=== PATIENT | female | born 1970 | race Caucasian/White ===

== ENCOUNTER → 2018-12-23 05:55 | Outpatient (CLI) | payer BC, SELFPAY ==
[2018-12-23 07:18] LABS: Color, Urine Yellow (Yellow); Glucose, Dipstick Normal (Normal); Ketone-Dipstick Negative (Negative); Leukocyte Esterase-Dipstick Negative /ul (Negative); Nitrite-Dipstick Negative (Negative); Occult Blood-Urine 25 /ul (Negative); Protein-Dipstick Negative (Negative); Urine Bilirubin Dipstick Negative (Negative); Urine Clarity Clear (Clear); Urine Urobilinogen Normal (Normal)
[2018-12-23 07:34] LABS: Absolute Lymphocyte Count 1.22 X10^3/ul (0.83-4.51); Absolute Neutrophil Count 4.2 X10^3/uL (2.0-7.7); Basophil# 0.09 X10^3/uL; Basophil% 1.5 % (0-1); Eosinophil# 0.25 X10^3/uL; Eosinophils% 4.1 % (0-5); Hematocrit 42.2 % (37-47); Hemoglobin 14.3 g/dl (12.0-15.0); Lymphocyte # 1.22 X10^3/ul (4.0); Lymphocyte % 19.8 % (19-41); Mean Corp Hgb Conc 33.9 g/gl (32-36); Mean Corpuscular Hgb 31.2 pg (27.0-32.0); Mean Corpuscular Volume 91.9 fL (81-99); Mean Platelet Vol. 9.5 fl (6.2-12.0); Monocyte# 0.42 X10^3/uL; Monocyte% 6.8 % (0-10); Neutrophil # 4.17 X10^3/uL (2.7-7.7); Neutrophil % 67.6 % (47-70); Platelet Count 340 K/mm3 (150-450); RBC Distribution Width CV 12.7 % (11.6-14.6); RBC Distribution Width SD 42.6 fl (35.1-43.9); Red Blood Count 4.59 M/mm3 (4.2-5.4); White Blood Count 6.2 K/mm3 (4.4-11.0)
[2018-12-23 07:36] LABS: POSITIVE COUNT NO; POSITIVE DIFFERENTIAL NO; POSITIVE MORPHOLOGY NO
[2018-12-23 07:38] LABS: ALB/GLOB Ratio 1.2 RATIO (0.9-2.4); AST(SGOT) 22 U/L (15-37); Alanine Aminotransfer ALT/SGPT 37 U/L (13-56); Albumin, Serum 3.9 g/dL (3.2-5.0); Alkaline Phosphatase 73 U/L (45-117); Anion Gap 8 (5-15); BUN 13 mg/dL (7-18); BUN/Creat Ratio 15.7 RATIO (10-20); Calcium,Total 9.3 mg/dL (8.5-10.1); Chloride 107 mmol/L (98-107); Cholesterol 175 mg/dL (200); Creatinine, Serum 0.83 mg/dL (0.55-1.02); EST Glomerular Filtration Rate 78 mL/min (>60); Est Glom Filt Rate - Afr Amer 94 mL/min (>60); Globulin 3.2 g/dL (2.2-4.2); Glucose 91 mg/dL (74-106); High Density Lipoprotein 51 mg/dL; Potassium 3.9 mmol/L (3.5-5.1); Protein, Total 7.1 g/dL (6.4-8.2); Sodium Level 142 mmol/L (136-145); Triglycerides 98 mg/dL; Very Low Density Lipoprotein 20 mg/dL (5-40)
== END ==
PROVIDERS: Family Provider Family Medicine; PCP Family Medicine; Referring Provider Family Medicine; Visit Provider Family Medicine
DX: I10 Essential (primary) hypertension (principal); E78.5 Hyperlipidemia, unspecified; E78.6 Lipoprotein deficiency
CPT/HCPCS: 36415; 80053; 80061; 81002; 85025

== ENCOUNTER → 2020-01-09 15:31 | Outpatient (CLI) | payer BC, SELFPAY ==
[2020-01-09 15:35] LABS: Bacteria 0 SEEN /hpf (None Seen); Mucous, Urine 0 SEEN /hpf (<or=2+); Red Blood Cells-Urine 0 SEEN /hpf (0-5); Squamous Epithelial Cells - UA 0 SEEN /hpf (5-10)
[2020-01-09 16:58] LABS: Absolute Lymphocyte Count 1.83 X10^3/uL (0.83-4.51); Absolute Neutrophil Count 3.3 X10^3/uL (2.0-7.7); Basophil# 0.08 X10^3/uL; Basophil% 1.3 % (0-1); Eosinophil# 0.32 X10^3/uL; Eosinophils% 5.4 % (0-5); Hematocrit 42.1 % (37-47); Hemoglobin 13.6 g/dL (12.0-15.0); Lymphocyte # 1.83 X10^3/ul (4.0); Lymphocyte % 30.8 % (19-41); Mean Corp Hgb Conc 32.3 g/dL (32-36); Mean Corpuscular Hgb 31.3 pg (27.0-32.0); Mean Platelet Vol. 9.9 fl (6.2-12.0); Monocyte% 6.7 % (0-10); NRBC Flagged by Analyzer 0 % (0-5); Neutrophil # 3.31 X10^3/uL (2.7-7.7); Neutrophil % 55.6 % (47-70); Platelet Count 333 K/mm3 (150-450); RBC Distribution Width CV 12.2 % (11.6-14.6); RBC Distribution Width SD 43.5 fl (35.1-43.9); Red Blood Count 4.34 M/mm3 (4.2-5.4)
[2020-01-09 16:59] LABS: Color, Urine Yellow (Yellow); Glucose, Dipstick Normal (Normal); Ketone-Dipstick 15 mg/dl (Negative); Leukocyte Esterase-Dipstick Negative /ul (Negative); Nitrite-Dipstick Negative (Negative); Occult Blood-Urine 25 /ul (Negative); Protein-Dipstick Negative (Negative); Urine Bilirubin Dipstick Negative (Negative); Urine Clarity Clear (Clear); Urine Urobilinogen Normal (Normal); Urine pH 6.5 (5.0 - 8.0)
[2020-01-09 17:14] LABS: ALB/GLOB Ratio 1.4 RATIO (0.9-2.4); AST(SGOT) 23 U/L (15-37); Alanine Aminotransfer ALT/SGPT 34 U/L (13-56); Albumin, Serum 4.3 g/dL (3.2-5.0); Alkaline Phosphatase 74 U/L (45-117); Anion Gap 6 (5-15); BUN 16 mg/dL (7-18); BUN/Creat Ratio 18.1 RATIO (10-20); Calcium,Total 9.5 mg/dL (8.5-10.1); Chloride 107 mmol/L (98-107); Creatinine, Serum 0.89 mg/dL (0.55-1.02); EST Glomerular Filtration Rate 72 mL/min (>60); Est Glom Filt Rate - Afr Amer 87 mL/min (>60); Globulin 3.1 g/dL (2.2-4.2); Glucose 94 mg/dL (74-106); Potassium 3.9 mmol/L (3.5-5.1); Protein, Total 7.4 g/dL (6.4-8.2); Sodium Level 141 mmol/L (136-145)
[2020-01-09 17:16] LABS: White Blood Cells 0-5 SEEN /hpf (0-5)
== END ==
PROVIDERS: PCP Family Medicine; Visit Provider Family Medicine
DX: I10 Essential (primary) hypertension (principal); E78.6 Lipoprotein deficiency
CPT/HCPCS: 36415; 80053; 81001; 85025

== ENCOUNTER 2021-08-05 07:00 | Outpatient (RCR) | payer BC, SELFPAY ==
--- NOTE | 2021-06-04 18:02 | HP.PTEVAL_ITS ---
Patient's Visit Information ERIC SHAH is a 51 year old F referred to Physical Therapy by Dr. Radha Polo MD with a diagnosis of R adductor strain. Date of Evaluation: 06/04/21 Physical Therapist: KATIE Stoddard - Visit Plan Frequency: 2-3x /Week Duration: 4 Weeks Plan: 2-3X/ week for centralization of symptoms, strengthening, postural exercises, stretching of the hips, with HEP. HEP: prone press ups and sitting with L-roll with upright posture - Subjective Pt is having pain in her R inner thigh. Depending how she sits or gets up it is excruciating. It hurts when driving. When she brings her leg up into hip flexion it hurts. She is not sure how she injured it. She was at the gym but not sure how she did it. She injured it a month ago. She has no back pain. No history of back pain. She would have pain in her calf and tightness there with a knot in it and then pain all the way up to glut. The pain in her leg is better somedays more than others. She did not get an x-ray. She had naproxen and it was elevating BP and getting HAMMER so stopped and moved to Advil and Tylenol. She has no N&T and no weakness in her leg. She is sleeping at night but can not sleep on her sides due to being uncomfortable so she wakes up in the night. Steps.... the higher the steps the more pain she has and has to hold onto a railing. No bruising and no redness and swelling. - Pain R adductor pain Pain Intensity (Out of 10): 4 Pain Intensity Range: 9 Comment: with driving - Objective Gait: Walks with decreased stride on the R and slower pace. Pt could not raise her R hip into flexion in sitting. LAQ on the R (Pt could only raise about have ROM and then started to get increase R adductor pain). Could fully extend on the L. -SLUMP on the L and increase pain with SLUMP test on the R. WOrked on LAQ with PROM until full extension to floss the nerve root and was eventually able to to to full ROM on the R. LE MMT: hip flex R 3-/5 and L 4/5, Knee ext R 3-/5 and L 4+/5, R knee flex 4/5 and L 4+/5 supine hip adductioon on the R 4/5 and L 4/5, hip abd on the R 3-/5 and L 4/5. R hip adduction PROM approx 30 degrees with no pain except when going back into adduction. Palpation: pt was tender along Both adductor tendons but more so on the R. No pain with extension mobs (light along the L-spine). Prone PRess ups 3 X 10... pt was able to walk without pain and perform standing hip flexion without pain and standing hip abd. Instructed pt in sitting posture with a L roll. - Balance/Special Test Scores Lower Extremity Functional Score: 29 - Goals Goal 1:: I HEP including Neutral spine core stability program Goal Time Frame: 4-6 Weeks Goal 2:: Centralize R LE symptoms Goal Time Frame: 4-6 Weeks Goal 3:: Be able to go through entire work day without having pain and sitting with good upright posture with a L -Roll Goal Time Frame: 4-6 Weeks Goal 4:: Be able to drive without R leg pain Goal Time Frame: 4-6 Weeks - Rehabilitation Potential Rehabilitation Potential: Good - Anticipated Interventions Patient/Client Instruction: Educate patient on: Condition, Plan of Care For the Purpose of:: To decrease pain, To increase ROM, To improve nutrient delivery to tissue, To improve muscle performance and motor function, To improve ability to perform ADL's, To increase tolerance to activity/condition/position, To improve performance and independence with ADL's, To decrease level of supervision to perform tasks, To improve ability of physical actions for home/community/work/leisure, To improve gait and locomotor functions, To improve health of tissue, To decrease soft tissue restriction, To increase flexibility/ROM Therapeutic Exercise to Include: Strength training, Balance training, Postural training, Flexibilty training, Gait and locomotor training, Neuromotor development, Passive ROM, Active ROM, Dynamic Lumbar Stabilization, Selena Exercises For the Purpose of:: To decrease pain, To increase ROM, To improve nutrient delivery to tissue, To improve muscle performance and motor function, To improve ability to perform ADL's, To increase tolerance to activity/condition/position, To decrease level of supervision to perform tasks, To improve gait and locomotor functions, To improve health of tissue, To decrease soft tissue restriction, To increase flexibility/ROM, To improve balance Manual Therapy Techniques to Include: Mobilization, Soft tissue mobilization For the Purpose of:: To decrease pain, To increase ROM, To improve nutrient delivery to tissue, To improve muscle performance and motor function, To improve health of tissue, To decrease soft tissue restriction, To increase flexibility/ROM IF ES: Yes Cryotherapy (ice pack, ice massage): Yes Thermo therapy (hot pack): Yes Ultrasound (thermal/non thermal): Yes For the Purpose of:: To decrease pain, To increase ROM, To improve nutrient delivery to tissue Thank you for the opportunity to evaluate your patient. For Medicare and Medicare HMO plans, please review the plan of care and approve it. It will need to be FAXED BACK to us at [phone] for Medicare purposes. For Medicare only, by signing this I certify the plan of care. Please let me know if there are questions or concerns regarding this plan of care. Physician Signature: ____Date:
--- NOTE | 2021-07-08 07:45 | HP.PTREVAL_ITS ---
Dr. Radha Polo MD, It has been my pleasure to treat ERIC SHAH over the last 8 visits for R adductor strain. Please see the progress note below for an update on the physical therapy plan of care! Subjective: Pt reports that she has about 1/10 today. She feels better but she is still hesitant to move her R LE and back as she is anticipating pain still. Pt still has pain when she gets out of the car but no pain while driving anymore. Pt reports that she is not taking as much IBPROF. Posture is improving. Objective/Function: Gait: still walks guarded and walks with no trunk rotation and increase antalgic gait with the R LE. Trunk AROM: Flexion 75% (guarded), Ext 75%, SB B 75%. Pt struggles with PT with legs in 90/90 or sitting position.... needs max tactile and verbal cues to achieve this. Plan Plan: Pt needs additional PT for core stability ptogression in Sitting and standing. 2-3X/ week for 2-3 additional weeks for core stability in sitting and standing, postural exercises and HEP. HEP: prone press ups and sitting with L- roll with upright posture Balance/Gait/Functional tests - Balance/Special Test Scores Lower Extremity Functional Score: 62 Goals Goal 1:: I HEP including Neutral spine core stability program Goal Time Frame: 4-6 Weeks Goal Progress: Progressing Goal 2:: Centralize R LE symptoms Goal Time Frame: 4-6 Weeks Goal Progress: Progressing Goal 3:: Be able to go through entire work day without having pain and sitting with good upright posture with a L -Roll Goal Time Frame: 4-6 Weeks Goal Progress: Progressing Goal 4:: Be able to drive without R leg pain Goal Time Frame: 4-6 Weeks Goal Progress: Progressing Anticipated Interventions Patient/Client Instruction: Educate patient on: Condition, Plan of Care For the Purpose of:: To decrease pain, To increase ROM, To improve nutrient delivery to tissue, To improve muscle performance and motor function, To improve ability to perform ADL's, To increase tolerance to activity/condition/position, To improve performance and independence with ADL's, To decrease level of supervision to perform tasks, To improve ability of physical actions for home/community/work/leisure, To improve gait and locomotor functions, To improve health of tissue, To decrease soft tissue restriction, To increase flexibility/ROM Therapeutic Exercise to Include: Strength training, Balance training, Postural training, Flexibilty training, Gait and locomotor training, Neuromotor development, Passive ROM, Active ROM, Dynamic Lumbar Stabilization, Selena Exercises For the Purpose of:: To decrease pain, To increase ROM, To improve nutrient delivery to tissue, To improve muscle performance and motor function, To improve ability to perform ADL's, To increase tolerance to activity/condition/position, To decrease level of supervision to perform tasks, To improve gait and locomotor functions, To improve health of tissue, To decrease soft tissue restriction, To increase flexibility/ROM, To improve balance Manual Therapy Techniques to Include: Mobilization, Soft tissue mobilization For the Purpose of:: To decrease pain, To increase ROM, To improve nutrient delivery to tissue, To improve muscle performance and motor function, To improve health of tissue, To decrease soft tissue restriction, To increase flexibility/ROM IF ES: Yes Cryotherapy (ice pack, ice massage): Yes Thermo therapy (hot pack): Yes Ultrasound (thermal/non thermal): Yes For the Purpose of:: To decrease pain, To increase ROM, To improve nutrient delivery to tissue Please do not hesitate to contact me at [phone] by phone or if you have questions or concerns regarding this new plan of care! Sincerely, KATIE Stoddard
--- NOTE | 2021-08-05 08:10 | HP.PTDCSUM ---
It has been my pleasure to treat ERIC SHAH referred by Dr. Radha oPlo MD, with the diagnosis of R adductor strain for a total of 11 visit(s). Discharge Date: 08/05/21 Please see the following information for a summary of their discharge status. Subjective: Pt reports no pain. The last time she had pain was 2 weeks ago. Other than going to the gym she feels back to normal. R adductor pain Pain Intensity (Out of 10): 0 % Improvement: 99 Objective/Function: Pt pain free with exercises today. Corrected OHS today with toe out on the R and decreased weight shift onto the R LE Goal 1:: I HEP including Neutral spine core stability program Goal Progress: Goal Met Goal 2:: Centralize R LE symptoms Goal Progress: Goal Met Goal 3:: Be able to go through entire work day without having pain and sitting with good upright posture with a L -Roll Goal Progress: Goal Met Goal 4:: Be able to drive without R leg pain Goal Progress: Goal Met Plan: DC PT to HEP and slow start back to gym exercises Discharge Comments: DC PT to HEP and slow start back to gym exercises If there are questions or concerns regarding this patient's physical therapy, please feel free to call me at [phone]. Thank you for the referral of this patient. Sincerely, Johanna Aragon, MPT Balance/Gait/Functional tests - Balance/Special Test Scores Lower Extremity Functional Score: 80
== END 2021-08-05 19:00 | disposition home or self-care (01) ==
LOC: PT 07:00
PROVIDERS: PCP Family Medicine; Referring Provider Family Medicine; Visit Provider Family Medicine
DX: S76.211D Strain of adductor muscle, fascia and tendon of right thigh, subsequent encounter (principal)
CPT/HCPCS: 97110; 97162

== ENCOUNTER → 2022-02-18 | Outpatient (CLI) | payer BC, SELFPAY ==
[2022-02-18 07:09] LABS: Absolute Lymphocyte Count 1.28 X10^3/uL (0.83-4.51); Absolute Neutrophil Count 2.3 X10^3/uL (2.0-7.7); Basophil# 0.07 X10^3/uL; Basophil% 1.7 % (0-1); Eosinophil# 0.28 X10^3/uL; Eosinophils% 6.7 % (0-5); Hematocrit 38.8 % (37-47); Hemoglobin 12.9 g/dL (12.0-15.0); Lymphocyte # 1.28 X10^3/ul (0.83-4.51); Lymphocyte % 30.4 % (19-41); Mean Corp Hgb Conc 33.2 g/dL (32-36); Mean Corpuscular Hgb 30.2 pg (27.0-32.0); Mean Corpuscular Volume 90.9 fL (81-99); Mean Platelet Vol. 9.2 fl (6.2-12.0); Monocyte% 7.1 % (0-10); NRBC Flagged by Analyzer 0 % (0-5); Neutrophil # 2.26 X10^3/uL (2.7-7.7); Neutrophil % 53.6 % (47-70); Platelet Count 323 K/mm3 (150-450); RBC Distribution Width CV 12.2 % (11.6-14.6); RBC Distribution Width SD 40.5 fl (35.1-43.9); Red Blood Count 4.27 M/mm3 (4.2-5.4); White Blood Count 4.2 K/mm3 (4.4-11.0)
[2022-02-18 07:20] LABS: Protein, Urine (Random) 15.4 mg/dL (<11.9); Protein:Creat Ratio 122 mg/g CRE (0-200)
[2022-02-18 07:53] LABS: ALB/GLOB Ratio 1.4 RATIO (0.9-2.4); AST(SGOT) 20 U/L (15-37); Alanine Aminotransfer ALT/SGPT 25 U/L (13-56); Albumin, Serum 3.8 g/dL (3.2-5.0); Alkaline Phosphatase 72 U/L (45-117); Anion Gap 4 (5-15); BUN 15 mg/dL (7-18); Calcium,Total 9.2 mg/dL (8.5-10.1); Chloride 108 mmol/L (98-107); Cholesterol 189 mg/dL (200); Creatinine, Serum 0.68 mg/dL (0.55-1.02); EST Glomerular Filtration Rate 96 mL/min (>60); Est Glom Filt Rate - Afr Amer 116 mL/min (>60); Globulin 2.8 g/dL (2.2-4.2); Glucose 98 mg/dL (74-106); High Density Lipoprotein 54 mg/dL; Protein, Total 6.6 g/dL (6.4-8.2); Sodium Level 141 mmol/L (136-145); Triglycerides 112 mg/dL; Very Low Density Lipoprotein 22 mg/dL (5-40)
== END | disposition home or self-care (01) ==
LOC: LAB 06:39
PROVIDERS: PCP Family Medicine; Referring Provider Family Medicine; Visit Provider Family Medicine
DX: Z00.00 Encounter for general adult medical examination without abnormal findings (principal); I10 Essential (primary) hypertension; E03.2 Hypothyroidism due to medicaments and other exogenous substances
CPT/HCPCS: 36415; 80053; 80061; 82570; 84156; 85025

== ENCOUNTER → 2022-08-13 | Outpatient (CLI) | payer OTHER, SELFPAY ==
--- NOTE | 2022-08-13 07:47 | CT_ITS ---
EXAM: CT BILATERAL LOWER EXTREMITIES WITHOUT INTRAVENOUS CONTRAST CLINICAL INDICATION: PREOP TECHNIQUE: Helically acquired images were obtained of the bilateral lower extremities without intravenous contrast. 2-D reformats were performed by the technologist. This CT exam was performed using one or more of the following dose reduction techniques: automated exposure control, adjustment of the mA and/or kV according to patient size, and/or use of iterative reconstruction technique. This report was created using [employer] App report Tiny Prints technology. COMPARISON: None. FINDINGS: BONES/JOINTS: Advanced arthritic changes of the right hip noted. There is complete loss of the superior portion of the right hip joint space. Bony sclerosis and subchondral cyst formation noted along the acetabulum and femoral head. Moderate osteophytosis of the right hip. Left hip appears intact. Partial sacralization of the right side of L5. Degenerative narrowing and bony spurring at the L4-5 disc level. Tricompartment narrowing of both knee joints. No knee joint effusion. No acute fracture or subluxation. SOFT TISSUES: Soft tissues are normal in appearance. No soft tissue swelling or gas. No radiopaque foreign body. CT/Extremity Lower without Contra IMPRESSION: 1. Advanced arthritic changes of the right hip as described. 2. Diffuse degenerative narrowing of both knee joints. Electronically Signed: Chris Araujo MD at 9:58 EST ,
== END | disposition home or self-care (01) ==
LOC: CT 07:34
PROVIDERS: PCP Family Medicine; Referring Provider Student in an Organized Health Care Education/Training Program; Visit Provider Student in an Organized Health Care Education/Training Program
DX: M16.11 Unilateral primary osteoarthritis, right hip (principal); M25.551 Pain in right hip
CPT/HCPCS: 73700

== ENCOUNTER 2022-08-27 18:01 | Observation (INO) | payer OTHER, SELFPAY ==
--- NOTE | 2022-08-13 07:45 | EKG12_ITS ---
Test Reason : PREOP Blood Pressure : / mmHG Vent. Rate : 086 BPM Atrial Rate : 086 BPM P-R Int : 150 ms QRS Dur : 084 ms QT Int : 374 ms P-R-T Axes : -05 026 026 degrees QTc Int : 447 ms Normal sinus rhythm Normal ECG Confirmed by SHEILA FERRIS, BRYNA ([id number]), society editor BARBARA BLANCO ([id number]) on 08/13/2022 1:43:32 PM Referred By: Oni Zelaya Confirmed By:AURORA SOSA MD
--- NOTE | 2022-08-13 08:00 | RAD_ITS ---
EXAM: XR CHEST, 2 VIEWS CLINICAL INDICATION: PREOP TECHNIQUE: Frontal and lateral views of the chest. This report was created using [employer] report generation technology. COMPARISON: None. FINDINGS: LUNGS AND PLEURAL SPACES: Normal. No consolidation or edema. No pneumothorax. No effusion. HEART: Normal heart size. MEDIASTINUM: No mediastinal or hilar mass. BONES/JOINTS: No acute abnormality. SOFT TISSUES: Normal. RAD/Chest PA and Lateral IMPRESSION: No acute cardiopulmonary disease. Electronically Signed: Chris Araujo MD at 9:30 EST ,
[2022-08-13 08:21] LABS: Absolute Neutrophil Count 2.9 X10^3/uL (2.0-7.7); Basophil# 0.09 X10^3/uL; Basophil% 1.8 % (0-1); Eosinophil# 0.25 X10^3/uL; Hematocrit 40.4 % (37-47); Hemoglobin 13.3 g/dL (12.0-15.0); Lymphocyte % 26.2 % (19-41); Mean Corp Hgb Conc 32.9 g/dL (32-36); Mean Corpuscular Hgb 30.4 pg (27.0-32.0); Mean Corpuscular Volume 92.2 fL (81-99); Mean Platelet Vol. 9.3 fl (6.2-12.0); Monocyte# 0.44 X10^3/uL; Monocyte% 8.9 % (0-10); NRBC Flagged by Analyzer 0 % (0-5); Neutrophil # 2.87 X10^3/uL (2.7-7.7); Neutrophil % 57.9 % (47-70); Platelet Count 359 K/mm3 (150-450); RBC Distribution Width CV 12.3 % (11.6-14.6); RBC Distribution Width SD 41.8 fl (35.1-43.9); Red Blood Count 4.38 M/mm3 (4.2-5.4)
[2022-08-13 08:38] LABS: International Normalized Ratio 0.9; Prothrombin Time (Protime)PT. 11.9 SECONDS (11.7-14.9)
[2022-08-13 09:06] LABS: AST(SGOT) 27 U/L (15-37); Alanine Aminotransfer ALT/SGPT 46 U/L (13-56); Albumin, Serum 4.3 g/dL (3.2-5.0); Alkaline Phosphatase 87 U/L (45-117); Anion Gap 6 (5-15); BUN 12 mg/dL (7-18); BUN/Creat Ratio 14.1 RATIO (10-20); Bilirubin, Direct 0.09 mg/dL (0.00-0.30); Calcium,Total 9.3 mg/dL (8.5-10.1); Chloride 106 mmol/L (98-107); Creatinine, Serum 0.85 mg/dL (0.55-1.02); EST Glomerular Filtration Rate 74 mL/min (>60); Est Glom Filt Rate - Afr Amer 89 mL/min (>60); Globulin 2.9 g/dL (2.2-4.2); Glucose 101 mg/dL (74-106); Potassium 3.9 mmol/L (3.5-5.1); Protein, Total 7.2 g/dL (6.4-8.2); Sodium Level 140 mmol/L (136-145); Thyroid Stim Hormone (TSH) 0.84 uIU/mL (0.358-3.74)
[2022-08-27] VITALS (16 sets, daily range): BP systolic 82–137; BP diastolic 45–78; PULSE 69–96; RESP 13–20; TEMP 36.3–37.3; O2SAT 92–100; BMI 32.2
--- NOTE | 2022-08-27 | HIP_PTH ---
PATIENT: ERIC SHAH LOC: [facility] U#:[id number] AGE/SX: 52/F ROOM: NJ316 RE08/27/[address]: Dr. Oni Zelaya DO : 1970 BED: 1 DIS: 08/28/2022 SPEC #: [id number] RECD: 08/27/22 13:19 STATUS: JA FRANKBrook #: [id number] SYLWIA: 08/27/22 00:[address]: Oni Zelaya DEPT: SURGICAL PATHOLOGY RECD BY: Richie Anne ENTERED: 08/27/22 13:19 SP TYPE: TOTAL HIP OTHR DR: MD Dr. Radha Hare MD Tissues: Hip, NOS Procedures: Decalcification bone/plaque Surgery Specimen Level IV HEADER OPERATION: ERAS, total hip replacement PRE-OP DIAGNOSIS: Right hip osteoarthritis TISSUE SUBMITTED: Right femoral head MICROSCOPIC DIAGNOSIS Bone and tissue of right hip, total resection: Severe degenerative joint disease. AM:rhiannon 09/02/22 MICROSCOPIC DESCRIPTION Slides are reviewed. GROSS DESCRIPTION Received is one container labeled with the patient's name and designated right femoral head. The specimen consists of a baltazar femoral head measuring 5 x 5.5 x 5 cm. The articular surface displays prominent osteophyte formation, eburnation and bone erosion. Also present in the specimen container are multiple irregular fragments of bone reamings and pink-yellow soft tissue measuring in aggregate 10 x 9 x 2 cm. [place] Upholsterer sections are submitted in two cassettes as follows: 1 - soft tissue, 2 - bone after decalcification. / SJ:rg 08/27/2022 TC:5 CPT: 79193, 59853
[2022-08-27] MEDS: Lactated Ringers 1,000 ML 15 ML IV (06:00)
[2022-08-27] MEDS: Magnesium 1 GM over 15 mins IV (06:05)
[2022-08-27] MEDS: Gabapentin 600 MG Tablet PO (06:17)
[2022-08-27] MEDS: Celecoxib 200 MG Capsule 400 MG PO (06:17)
[2022-08-27] MEDS: Acetaminophen 500 MG Tablet 1000 MG PO ×3 (06:17→21:16)
[2022-08-27 06:50] LABS: Bedside Glucose 86 mg/dL (74-106)
[2022-08-27] MEDS: Cefazolin 2 GM in 0.9% Normal Saline 100 ML IV (09:15)
[2022-08-27] MEDS: TXA 1000mg in NS100 100ml (IVPB at Incision) 660 MG IV (09:20)
[2022-08-27] MEDS: TXA 1000mg in NS100 100ml (IVPB at Closure) 660 MG IV (11:19)
--- NOTE | 2022-08-27 12:13 | PCM.OPRPT ---
Report of Operation Date of Procedure: 08/27/22 Description of Surgical Findings:: Preoperative diagnosis: Right hip primary osteoarthritis Postoperative diagnosis: Right hip primary osteoarthritis Procedure: Right total hip arthroplasty Surgeon: Oni Zelaya DO Pediatric Urologist: Kelvin Perez CRNA Anesthesia: Spinal with conversion to General endotracheal It Lead: Eliot Beaver CRNA Complications: None apparent Drains: None Estimated blood loss: 300 cc Urinary output: none recorded IV fluids: 1600 cc crystalloid Specimens: Femoral head Surgical implants: [place]etta Accolade two 127 degree neck angle hip stem size #5, Biolox delta ceramic V 40 femoral head 36 mm outer diameter +0 mm neck length, Chantale Trident X3 10 degree polyethylene insert, Trident 2 TriTanium cluster hole acetabular shell 52 mm diameter Indications: This is a 52-year-old female seen in outpatient setting for right hip pain. X-rays revealed severe right hip osteoarthritic changes. She failed nonoperative management in form of activity modification, NSAIDs and Tylenol. I recommended surgical intervention in the form of right total hip arthroplasty. I reviewed the procedure with the patient, its risk, benefits, alternatives. Risks included but were not limited to bleeding, infection, loss of life or limb, risk of anesthesia, neurovascular injury, persistent pain, instability, need for additional surgery, failure of orthopedic hardware, loosening, osteolysis, need for assistive devices long-term, leg length discrepancy. Patient expressed understanding wish to proceed with surgery. Description of procedure: I greeted the patient in same-day surgery holding area the day of surgery. She was identified by name, medical record number, and date of . All questions were answered to patient satisfaction. The operative extremity was marked with a surgical marker. Informed consent was confirmed with the patient. Patient underwent spinal anesthetic in the PACU prior to the procedure. At time of her procedure, patient brought the operative suite and positioned supine initially on a standard operating table. Gentle MAC anesthesia was administered. Patient was then positioned in a lateral decubitus position with the right side up. An axillary roll was placed under the patient's left axilla. The left fibular head was free. Patient was held in the lateral decubitus position with an Alimed hip positioner system. We then prepped and draped the right lower extremity in normal, sterile orthopedic fashion. We were prepared for robotic assisted total hip arthroplasty to be performed however, contamination of both Martell hip trays was found. I made a decision to proceed with traditional total hip arthroplasty and forego robotic assistance as the patient already had her spinal anesthetic administered. We performed a timeout with all parties in attendance in agreement with the side, site, and operation to be performed. No concerns were voiced and would like to proceed. 1 g TXA IV as well as 2 g Ancef was administered prior to the incision by anesthesia staff. 1 g TXA IV was administered at time of closure additionally. A standard posterior lateral incision was made curvilinear over the posterior lateral hip, centered on the tip of the greater trochanter. Full-thickness skin incision was made, approximately 12 cm in length. Upon making skin incision, patient reacted to pain. We halted the surgical procedure packing the wound. Patient was converted to a general anesthetic with LMA placed urgently. After gaining airway control, we continued the surgical procedure. I sharply dissected down the level of the fascia abeba. Fascia abeba was then incised in line with the incision. I bluntly dissected through the raphae of the gluteus karoline. I then internally rotated the hip. Limited gluteal bursectomy was performed to identify the short external rotators. A Cobra retractor was placed beneath the gluteus medius. Short external rotators were taken down with Bovie cautery and tagged for later repair with #2 Ethibond suture. This identified the underlying capsule. A trapezoidal shaped capsulotomy was made over the femoral neck carried posteriorly to the acetabular labrum. Capsule was tagged for later repair with #2 Ethibond suture. Labrum was released and the hip was dislocated. I then marked a standard femoral neck cut 1 fingerbreadth above the lesser trochanter. Sagittal saw was used to carefully cut the femoral neck. Femoral head was removed and examined and appeared benign. It was sent to pathology per hospital policy. I then turned my attention to the acetabulum. Cobra retractors were placed anterior and posteriorly. Self-retaining retractor was placed superiorly. Acetabular labrum was excised with a long handled knife. Acetabular pulvinar was excised with Bovie cautery. Hemostasis was excellent at this point. I then began medializing reaming with a size 46 reamer. Sequentially reamed to a final diameter of 52 mm which was templated on the [facility] software. Final size 52 outer diameter acetabular component was selected and opened. Acetabular shell was impacted to complete depth with excellent rim fit. A single acetabular screw was placed in the posterior superior quadrant of the acetabular shell with excellent cancellous purchase. I then selected a 10 degree posterior lipped liner and impacted this per cable installation technician recommendations. I then turned my attention to the femur. Box chisel was then utilized to gain access to the femoral canal. Canal finder was placed. Sequential broaches were used and press-fit manner. A final size 5 achieved excellent vertical and rotational stability. We then trialed with a 127 degree hip stem as templated. A +0 neck length was trialed. The +0 mm neck achieved stability as well as closely matching leg lengths. Trials were then removed. We copiously irrigated the wound with normal saline solution, Betadine solution, and irrisept solution. A size 5 stem was then impacted with excellent fixation. Final head was then impacted over clean, dry Rosales taper neck. Final reduction was performed. A posterior capsular repair was performed with #2 Ethibond suture and bone tunnels, as well as the short external rotator repair. IT band was closed watertight with #1 strata fix suture. Deeper fascial layers were closed with 0 Vicryl suture in interrupted fashion. Subcutaneous layers were reapproximated with 2-0 Vicryl suture and skin reapproximated with running subcuticular 3-0 strata fix and skin glue. Pelvic array incision was closed with buried 2-0 Vicryl suture and skin glue.. A silver dressing was applied. Patient tolerated procedure well without complication. She was positioned back in the supine position on his hospital bed. She was transferred to PACU in stable condition. A pillow was placed between the patient's leg to be present while she is in bed. Post Operative Plan: Plan for discharge home today. Physical therapy to be performed in same-day surgery with plan to discharge to outpatient physical therapy. Weightbearing: Weightbearing as tolerated right lower extremity, posterior hip precautions. Pillows between legs while in bed Antibiotics: Ancef 1 g IV prior to discharge DVT Prophylaxis: Aspirin 81 mg twice daily to start postoperative day #1 Loya: None Dressing: Maintain silver dressing x 5 days X-Rays: PACU x-rays were reviewed demonstrated well-positioned right total hip arthroplasty implant. Follow-up 2-week x-rays in the office. Follow-up: 2 weeks in my office as scheduled
--- NOTE | 2022-08-27 12:20 | RAD_ITS ---
STUDY: X-RAY - PELVIS AND RIGHT HIP REASON FOR EXAM: Female, 52 years old. Post op -- in PACU TECHNIQUE: 2 views of the pelvis and hip. COMPARISON: None. FINDINGS: The patient is status post right total hip replacement. There is good alignment. RAD/Hip Min 2 Views (Portable) IMPRESSION: Status post right total hip replacement. There is good alignment. Electronically Signed: Hank Unger MD at 12:55 EST ,
[2022-08-27] MEDS: Lactated Ringers 1,000 ML 125 ML IV ×2 (13:11→21:06)
[2022-08-27] MEDS: Cefazolin 1 GM/50 ML BAG IV ×2 (14:43→19:55)
[2022-08-27] MEDS: Meloxicam 7.5 MG Tablet PO (18:18)
[2022-08-27] MEDS: oxyCODONE 5 MG Tablet PO ×2 (19:52→21:06)
--- NOTE | 2022-08-27 20:08 | CPS ---
pt with nursing at this time-smi and pep left at bedside
[2022-08-27] MEDS: Senna/Docusate Sodium 1 Tablet 2 TABLET PO (21:16)
[2022-08-28 01:55] VITALS: BP 102/79; PULSE 79; RESP 14; TEMP 36.7; O2SAT 98
[2022-08-28] MEDS: Lactated Ringers 1,000 ML 125 ML IV (05:22)
[2022-08-28] MEDS: Cefazolin 1 GM/50 ML BAG IV (05:23)
[2022-08-28] MEDS: oxyCODONE 5 MG Tablet PO ×2 (05:23→12:18)
[2022-08-28] MEDS: Levothyroxine 150 MCG Tablet PO (05:24)
[2022-08-28] MEDS: Acetaminophen 500 MG Tablet 1000 MG PO (05:24)
[2022-08-28 06:17] VITALS: BP 109/66; PULSE 78; RESP 16; TEMP 36.6; O2SAT 95
[2022-08-28 06:46] LABS: Hematocrit 35.6 % (37-47); Hemoglobin 11.5 g/dL (12.0-15.0); Mean Corp Hgb Conc 32.3 g/dL (32-36); Mean Corpuscular Hgb 30.3 pg (27.0-32.0); Mean Corpuscular Volume 93.9 fL (81-99); Mean Platelet Vol. 9.3 fl (6.2-12.0); Platelet Count 266 K/mm3 (150-450); RBC Distribution Width CV 12.4 % (11.6-14.6); RBC Distribution Width SD 42.8 fl (35.1-43.9); Red Blood Count 3.79 M/mm3 (4.2-5.4); White Blood Count 6.7 K/mm3 (4.4-11.0)
[2022-08-28 07:15] LABS: Anion Gap 8 (5-15); BUN 11 mg/dL (7-18); BUN/Creat Ratio 14.8 RATIO (10-20); Calcium,Total 8.4 mg/dL (8.5-10.1); Chloride 105 mmol/L (98-107); Creatinine, Serum 0.74 mg/dL (0.55-1.02); EST Glomerular Filtration Rate 87 mL/min (>60); Est Glom Filt Rate - Afr Amer 105 mL/min (>60); Glucose 133 mg/dL (74-106); Potassium 3.8 mmol/L (3.5-5.1); Sodium Level 139 mmol/L (136-145)
--- NOTE | 2022-08-28 07:29 | PCM.PN.ORT ---
Subjective Subjective Patient seen and examined. Denies new complaints. Pain controlled with current pain regiment. To bedside commode with nursing utilizing walker. Feels she is able to go home today. Objective Data Objective Data Vital Signs: Vital Signs Temp Pulse Resp BP Pulse Ox O2 Del Method O2 Flow Rate 97.9 F 78 16 109/66 95 Room Air 4 08/28/22 06:17 08/28/22 06:17 08/28/22 06:17 08/28/22 06:17 08/28/22 06:17 08/28/22 06:17 08/27/22 13:29 Oxygen Flow Rate (L/min) 4 Oxygen Delivery Method Room Air Weight: 206 lb Body Mass Index (BMI) 32.2 Intake & Output: Intake and Output for Last 24 Hours 08/26/22 08/27/22 08/28/22 23:59 23:59 23:59 Intake Total 3532 / 3532 1702.08 / 1702.08 Output Total 750 / 750 Balance 3532 / 2782 952.08 / 952.08 Lab / Micro Data Result Diagrams: 08/28/22 06:10 08/28/22 06:10 Labs: Laboratory Results - last 24 hr 08/28/22 06:10: WBC 6.7, RBC 3.79 L, Hgb 11.5 L, Hct 35.6 L, MCV 93.9, MCH 30.3, MCHC 32.3, RDW Std Deviation 42.8, RDW Coeff of Alfredo 12.4, Plt Count 266, MPV 9.3 08/28/22 06:10: Sodium 139, Potassium 3.8, Chloride 105, Carbon Dioxide 26.0, Anion Gap 8, BUN 11, Creatinine 0.74, Estim Creat Clear Calc 85.50, Est GFR (MDRD) Af Amer 105, Est GFR (MDRD) Non-Af 87, BUN/Creatinine Ratio 14.8, Glucose 133 H, Calcium 8.4 L Micro: Microbiology 08/13/22 07:36 Swab (Method) Nasal Screen MRSA/MSSA - Final Radiography Diagnostic Testing: Radiology Impression Hip X-Ray 08/27/22 12:20 IMPRESSION: Status post right total hip replacement. There is good alignment. Electronically Signed: Hank Unger MD at 12:55 EST , Physical Exam Narrative General - A&Ox3, NAD. VSS/AF Right lower extremity -incisional dressing C/D/I. SILT Sural, Saphenous, SPN, DPN, Tibial N. distributions. DP, PT 2+. BCR. DF, PF, EHL 5/5. No calf TTP. Assessment & Plan Assessment/Plan (1) Postoperative pain: PLAN: POD#1 s/p right total hip arthroplasty -Patient doing better this morning. Patient had significant lethargy and difficulty mobilizing postoperatively in same-day surgery and was subsequently placed in observation overnight. She has mobilized well with nursing staff overnight. - Pain control - PT/OT -weightbearing as tolerated, posterior precautions - DVT PPX -aspirin 81 mg twice daily, SCDs, SHERRIE casarez, early mobilization -Anticipate discharge to home today if therapy goals are met.
--- NOTE | 2022-08-28 07:30 | DCINST_ITS ---
Discharge Instructions Follow Up Care Test Results: Test results from this visit will be discussed in further detail at your follow- up appointment, if applicable. Discharge Plan Admission Primary Reason for Your Visit: Right hip replacement Attending Provider: Oni Zelaya Primary Care Provider: Radha Polo Consulting Providers: Sage Bliss Instructions Additional Instructions / Restrictions: Follow preprinted instructions from surgeon's office Discharge Orders/Prescriptions Prescriptions: Continued levothyroxine 150 mcg Tablet 150 mcg PO DAILY zolpidem [Ambien] 5 mg Tablet 5 mg PO QHS PRN (Reason: Sleep) lisinopril-hydrochlorothiazide 10-12.5 mg Tablet 1 tab PO DAILY cholecalciferol (vitamin D3) [Vitamin D3] 125 mcg (5,000 unit) Tablet 175 mcg PO DAILY meloxicam 15 mg Tablet 15 mg PO DAILY Referrals / Follow Up: Radha Polo MD [Primary Care Provider] - Oni Zelaya DO [Med Staff - Active Staff] - Disposition Disposition (needs filled in before D/C Order can be placed): Home, Self Care
[2022-08-28] MEDS: Ondansetron 4 MG/2 ML Vial IV (09:53)
[2022-08-28] MEDS: FLU VACC QS2022-23(6MOS UP)/PF 60 MCG/0.5 ML SYRINGE IM (09:53)
[2022-08-28] MEDS: Meloxicam 7.5 MG Tablet PO (09:53)
[2022-08-28] MEDS: hydroCHLOROthiazide 12.5mg 12.5 MG PO (09:54)
[2022-08-28] MEDS: Aspirin 81 MG TAB.CHEW PO (09:54)
[2022-08-28] MEDS: Senna/Docusate Sodium 1 Tablet 2 TABLET PO (09:54)
[2022-08-28] MEDS: Lisinopril 10 MG Tablet PO (09:54)
[2022-08-28 10:02] VITALS: BP 112/69; PULSE 81; RESP 18; TEMP 36.7; O2SAT 100
--- NOTE | 2022-08-28 10:55 | CASEMGMT ---
CONRAD LOCO OCCUPATIONAL THERAPIST PER DIEM CM to room to meet with patient for initial transition planning/care coordination assessment. CONRAD LOCO introduced self and role at [facility].? Pt voices understanding and consents to assessment at this time.? Pt resting in bed in no distress at this time.? @ bedside. Pt is A/O at this time and answers all questions appropriately.?? Care providers, pharmacy, and demographics verified/updated at this time. PCP: Dr Polo Specialists: Dr Zelaya-ortho, Dr Liu-flight attendant in [place], Dr Wade-SYSTEMS TESTING LABORATORY TECHNICIAN Preferred Pharmacy: [facility] Retail Insurance: [employer] Prescription Benefit:?Yes Living Will/HPOA:? Pt does not currently have LW/HCPOA LNOK: , Liban. Son, John. Dtr, Radha Living Arrangements: Lives w/her and dtr, Radha, in one-story home w/5 steps to enter. Pt states therapy has worked w/her on the steps and she feels comfortable w/navigating stairs. Transportation: Pt states drives self and states no transportation concerns at this time.? also drives. DME: ?States has the following DME:? Raised toilet seat, Toilet side rails, walker, employment legal assistant, sock aide ?Pt states no need for further DME at this time.? HHC/SNF: No hx of either. Has been to OP therapy @ [facility] in the past. Pt has an appt @ [facility] on Mon 08/31 for OP therapy. Pt wishes to return home and states has no concerns with going home at time of discharge.? Pt voices no further concerns/needs at this time.? PLAN: ?Home w/OP therapy @ [facility] LOTT RN, CM
[2022-08-28 11:42] VITALS: O2SAT 100
--- NOTE | 2022-08-28 17:14 | PCM.DC.SUM ---
Providers Date of Admission: 08/27/22 Primary Care Physician: Dr. Radha Polo MD Reason For Visit: RT TOTAL HIP W MELISSA Diagnosis Discharge Diagnosis (1) Postoperative pain: Status: Acute Code(s): G89.18 - Other acute postprocedural pain Plan: POD#1 s/p right total hip arthroplasty -Patient doing better this morning. Patient had significant lethargy and difficulty mobilizing postoperatively in same-day surgery and was subsequently placed in observation overnight. She has mobilized well with nursing staff overnight. - Pain control - PT/OT -weightbearing as tolerated, posterior precautions - DVT PPX -aspirin 81 mg twice daily, SCDs, SHERRIE hose, early mobilization Medications at Discharge Home Medications cholecalciferol (vitamin D3) 125 mcg (5,000 unit) tablet (Vitamin D3) 175 mcg PO DAILY 08/11/22 levothyroxine 150 mcg tablet 150 mcg PO DAILY 08/11/22 lisinopril 10 mg-hydrochlorothiazide 12.5 mg tablet 1 tab PO DAILY 08/11/22 meloxicam 15 mg tablet 15 mg PO DAILY 08/11/22 zolpidem 5 mg tablet (Ambien) 5 mg PO QHS PRN Sleep 08/11/22 Hospital Course Summary of Care Provided Minutes Spent on Discharge: 15 Hospital Course: Patient underwent uncomplicated right total hip arthroplasty through posterior approach 08/27/22. She tolerated the procedure well without apparent complication. We planned same-day surgery, however patient was significantly lethargic postoperatively and felt more comfortable staying the night. She was subsequently admitted overnight for additional physical therapy and monitoring. She did well overnight. She was able to mobilize with PT and OT. She was able to be safely discharged home on postoperative day #1. No medical or surgical complications were encountered throughout her stay. Physical Exam Narrative General - A&Ox3, NAD. VSS/AF Right lower extremity -incisional dressing C/D/I. SILT Sural, Saphenous, SPN, DPN, Tibial N. distributions. DP, PT 2+. BCR. DF, PF, EHL 5/5. No calf TTP. Weight / BMI Weight Weight: 206 lb Body Mass Index (BMI) 32.2 ABG / Lab / Microbiology Data Result Diagrams: 08/28/22 06:10 08/28/22 06:10 Laboratory: Laboratory Results - last 24 hr 08/28/22 06:10: WBC 6.7, RBC 3.79 L, Hgb 11.5 L, Hct 35.6 L, MCV 93.9, MCH 30.3, MCHC 32.3, RDW Std Deviation 42.8, RDW Coeff of Alfredo 12.4, Plt Count 266, MPV 9.3 08/28/22 06:10: Sodium 139, Potassium 3.8, Chloride 105, Carbon Dioxide 26.0, Anion Gap 8, BUN 11, Creatinine 0.74, Estim Creat Clear Calc 85.50, Est GFR (MDRD) Af Amer 105, Est GFR (MDRD) Non-Af 87, BUN/Creatinine Ratio 14.8, Glucose 133 H, Calcium 8.4 L Microbiology: Microbiology 08/13/22 07:36 Swab (Method) Nasal Screen MRSA/MSSA - Final Meaningful Use Info Meaningful Use Diagnoses (Choose all that apply): None applicable Discharge Plan Admission Admit Date/Time: 08/27/22 18:01 Primary Reason for Your Visit: Right hip replacement Attending Provider: Oni Zelaya Primary Care Provider: Radha Polo Consulting Providers: Sage Bliss Instructions Additional Instructions / Restrictions: Follow preprinted instructions from surgeon's office Discharge Orders/Prescriptions Prescriptions: Continued levothyroxine 150 mcg Tablet 150 mcg PO DAILY zolpidem [Ambien] 5 mg Tablet 5 mg PO QHS PRN (Reason: Sleep) lisinopril-hydrochlorothiazide 10-12.5 mg Tablet 1 tab PO DAILY cholecalciferol (vitamin D3) [Vitamin D3] 125 mcg (5,000 unit) Tablet 175 mcg PO DAILY meloxicam 15 mg Tablet 15 mg PO DAILY Referrals / Follow Up: Radha Polo MD [Primary Care Provider] - Oni Zelaya DO [Med Staff - Active Staff] - Disposition Disposition (needs filled in before D/C Order can be placed): Home, Self Care
--- NOTE | 2022-09-10 15:05 | PCM.HP.STD ---
HPI - General General Date of Admission: 08/27/22 HPI Narrative ERIC SHAH, is a 52 F with longstanding right hip pain. She was diagnosed with right hip osteoarthritis. She was seen in the outpatient setting by myself. X-rays revealed end-stage right hip osteoarthritis. Surgical intervention in the form of right total hip arthroplasty was recommended. She failed nonoperative management form of NSAIDs, activity modification, physical therapy. She wished to proceed with surgery. She denies any fevers, chills, nausea or vomiting, chest pain or shortness of breath. PENDING SALE TO [facility] Medical History (Updated 09/10/22 @ 15:[address] Oni Zelaya, DO) Alcohol use Anxiety Arthritis Back pain Cancer Easy bruising History of pain when walking Hypertension Migraine headache Non-smoker Osteoarthritis of right hip Post-menopausal Thyroid disease Wears contact lenses Wears glasses Home Medications cholecalciferol (vitamin D3) 125 mcg (5,000 unit) tablet (Vitamin D3) 175 mcg PO DAILY 08/11/22 [History Last Taken 08/26/22] levothyroxine 150 mcg tablet 150 mcg PO DAILY 08/11/22 [History Last Taken 08/27/22] lisinopril 10 mg-hydrochlorothiazide 12.5 mg tablet 1 tab PO DAILY 08/11/22 [History Last Taken 08/26/22] meloxicam 15 mg tablet 15 mg PO DAILY 08/11/22 [History Last Taken 08/26/22] zolpidem 5 mg tablet (Ambien) 5 mg PO QHS PRN Sleep 08/11/22 [History Last Taken Unknown] Allergy/AdvReac Type Severity Reaction Status Date / Time cat dander Allergy Chest Verified 08/27/22 06:13 tightness sulfamethoxazole AdvReac CALF PAIN Verified 08/27/22 06:13 [From ] trimethoprim [From ] AdvReac CALF PAIN Verified 08/27/22 06:13 Surgical History (Updated 08/11/22 @ 09:12 by Rita Butler) History of bunionectomy of right great toe Hx of tonsillectomy Hx of total thyroidectomy Social History Smoking Status: Never smoker ROS ROS Narrative 12 point review of systems obtained, negative unless otherwise noted in HPI. Vital Signs Vital Signs Vital Signs: Weight Weight: 206 lb Body Mass Index (BMI) 32.2 Physical Exam Narrative General -A&Ox3, NAD, appears stated age. Vital signs stable, afebrile. Respiratory -normal work of breathing, no intercostal retractions. CV -pulses regular, brisk capillary refill ?4 limbs. Abdomen-soft, nontender, nondistended. No guarding, rigidity, rebound tenderness. Musculoskeletal/neurologic -full range of motion nontender throughout bilateral upper extremities, left lower extremity with full sensation and strength in all dermatomes and myotomes. No midline cervical tenderness. Right lower extremity-no obvious deformity. Pain reproduced with flexion, abduction and internal rotation of the right hip.. Nontender throughout the right knee femoral shaft, tibial shaft and left foot/ankle. Brisk capillary refill. Sensation intact light touch L3-S1 dermatomes. DF, PF, EHL intact. DP, PT 2+. Pelvis is stable, nontender. Skin is intact without lacerations, abrasions. No ecchymosis noted. Results Lab / Micro Data Result Diagrams: 08/28/22 06:10 08/28/22 06:10 Assessment & Plan Assessment/Plan (1) Osteoarthritis of right hip: PLAN: Plan to proceed with right total hip arthroplasty. Informed consent confirmed with the patient. Risk, benefits, alternatives to procedure reviewed with patient at length and she agreed to proceed. Risk included but were not limited to bleeding infection, loss of life or limb, need for additional surgery, persistent pain, nonhealing wounds, failure of orthopedic hardware subsidence, loosening, instability, neurovascular injury, DVT or PE, risk of anesthesia. Informed sent confirm with the patient. Plan to proceed with surgery as planned.
== END 2022-08-28 12:49 | disposition home or self-care (01) ==
LOC: SDC 08-28 08:54 → MS3 08-28 08:54
PROVIDERS: Anesthesiology; Admitting Provider Student in an Organized Health Care Education/Training Program; PCP Family Medicine; Referring Provider Student in an Organized Health Care Education/Training Program; Visit Provider Student in an Organized Health Care Education/Training Program
PROC: 8E0Y0CZ Robotic Assisted Procedure of Lower Extremity, Open Approach (ICD-10-PCS; CPT 27130; principal; 2022-08-27 07:00)
DX: M16.11 Unilateral primary osteoarthritis, right hip (principal); E07.9 Disorder of thyroid, unspecified; Z79.890 Hormone replacement therapy; Z79.899 Other long term (current) drug therapy; I10 Essential (primary) hypertension; Z86.2 Personal history of diseases of the blood and blood-forming organs and certain disorders involving the immune mechanism; F41.9 Anxiety disorder, unspecified; Z23 Encounter for immunization
CPT/HCPCS: 27130; 01214; 36415; 71046; 73502; 80048; 80076; 82962; 83735; 84443; 85025; 85027; 85610; 85730; 87081; 88305; 88311; 93005; 94668; 96361; 96365; 96366; 96375; 97110; 97116; 97162; 97166; 97530; 99221; 99252; C1776; J7120; 90686; G0378; G0463; J2405; J3475

== ENCOUNTER → 2023-12-23 | Outpatient (CLI) | payer OTHER, SELFPAY ==
--- NOTE | 2023-12-23 15:34 | BD_ITS ---
STUDY: DUAL ENERGY X-RAY ABSORPTIOMETRY / DXA REASON FOR EXAM: Female, 53 years old. Baseline TECHNIQUE: Bone Mineral Density (BMD) measurements of lumbar spine and left hip were obtained. COMPARISON: None. FINDINGS: Lumbar Spine (L1-L4): g/cm2 (1.137) / T-score (0.8) / Z-score (1.9) Findings are suggestive of normal bone density with a low fracture risk. Left Femur Total: g/cm2 (0.906) / T-score (-0.3) / Z-score (0.4) Left Femoral Neck: g/cm2 (0.765) / T-score (-0.8) / Z-score (0.3) BD/Dexa Bone Density Study IMPRESSION: The patient is considered normal as outlined below according to World Thomas Organization (WHO) criteria with a low fracture risk. Reference Information: The T-score is the number of standard deviations above or below the standard which is normal for young adults at their peak bone mineral density. The World Health Organization (WHO) interprets the T-scores as follows: Above -1 Normal bone density Between -1 and -2.5 Osteopenia Equal to / or below -2.5 Osteoporosis As a practical clinical guideline, osteopenia may be graded as follows: Mild -1 through -1.5 Moderate -1.6 through -2.0 Severe -2.1 through -2.4 The Z-score is the number of standard deviations above or below age-matched controls. A Z-score of less than -1.5 would be considered abnormal. References: 1. NIH Osteoporosis and Related Bone Diseases www osteo.org 2. International Society for Clinical Densitometry www iscd.org 3. National Osteoporosis Foundation www nof.org Electronically Signed: Hank Unger MD at 15:24 EDT ,
== END | disposition home or self-care (01) ==
LOC: OPBD 15:32
PROVIDERS: PCP Family Medicine; Referring Provider Internal Medicine Endocrinology, Diabetes & Metabolism; Visit Provider Internal Medicine Endocrinology, Diabetes & Metabolism
DX: E89.0 Postprocedural hypothyroidism (principal); Z78.0 Asymptomatic menopausal state; Z85.850 Personal history of malignant neoplasm of thyroid
CPT/HCPCS: 77080

== ENCOUNTER → 2024-04-14 | Outpatient (CLI) | payer OTHER, SELFPAY ==
[2024-04-14 07:54] LABS: T4 Free Direct 1.44 ng/dL (0.76-1.46); Thyroid Stim Hormone (TSH) 0.132 uIU/mL (0.358-3.740)
[2024-04-14 08:23] LABS: Vitamin D,25 Hydroxy 98.8 ng/mL
[2024-04-14 14:28] LABS: Cholesterol 187 mg/dL (200); High Density Lipoprotein 51 mg/dL; Triglycerides 110 mg/dL; Very Low Density Lipoprotein 22 mg/dL (5-40)
[2024-04-17 13:57] LABS: Hemoglobin A1c 5.4 % (3.8-5.6)
[2024-04-17 16:09] LABS: Anti-Thyroglobulin AB < 1.0 IU/mL (0.0-0.9); Thyroglobulin, Serum Qt. < 0.1 ng/mL (1.5-38.5)
== END | disposition home or self-care (01) ==
LOC: LAB 05:52
PROVIDERS: PCP Family Medicine; Referring Provider Internal Medicine Endocrinology, Diabetes & Metabolism; Visit Provider Internal Medicine Endocrinology, Diabetes & Metabolism
DX: E89.0 Postprocedural hypothyroidism (principal); Z85.850 Personal history of malignant neoplasm of thyroid
CPT/HCPCS: 36415; 80061; 82306; 83036; 84432; 84439; 84443; 86800

== ENCOUNTER → 2024-11-08 | Outpatient (CLI) | payer BC, SELFPAY ==
[2024-11-08 06:55] LABS: Absolute Neutrophil Count 2.6 X10^3/uL (2.0-7.7); Basophil# 0.09 X10^3/uL; Eosinophil# 0.21 X10^3/uL; Eosinophils% 4.6 % (0-5); Hematocrit 39.6 % (37-47); Hemoglobin 13.8 g/dL (12.0-15.0); Lymphocyte % 28.3 % (19-41); Mean Corp Hgb Conc 34.8 g/dL (32-36); Mean Corpuscular Hgb 30.5 pg (27.0-32.0); Mean Corpuscular Volume 87.6 fL (81-99); Mean Platelet Vol. 9.4 fl (6.2-12.0); Monocyte# 0.34 X10^3/uL; Monocyte% 7.4 % (0-10); NRBC Flagged by Analyzer 0 % (0-5); Neutrophil # 2.64 X10^3/uL (2.7-7.7); Neutrophil % 57.5 % (47-70); Platelet Count 343 K/mm3 (150-450); RBC Distribution Width CV 12.1 % (11.6-14.6); RBC Distribution Width SD 38.9 fl (35.1-43.9); Red Blood Count 4.52 M/mm3 (4.2-5.4); White Blood Count 4.6 K/mm3 (4.4-11.0)
[2024-11-08 08:50] LABS: AST(SGOT) 27 U/L (<=31); Alanine Aminotransfer ALT/SGPT 26 U/L (<=34); Albumin, Serum 4.5 g/dL (3.5-5.0); Alkaline Phosphatase 75 U/L (35-104); Anion Gap 11 (5-15); BUN 12 mg/dL (4-19); BUN/Creat Ratio 16.1 RATIO (10-20); Calcium,Total 9.7 mg/dL (7.6-11.0); Carbon Dioxide 24.8 mmol/L (21.0-32.0); Chloride 105 mmol/L (98-108); Creatinine, Serum 0.73 mg/dL (0.70-1.20); EST Glomerular Filtration Rate 98 (>60); Globulin 2.2 g/dL (2.2-4.2); Glucose 98 mg/dL (70-99); Potassium 3.9 mmol/L (3.3-5.1); Protein, Total 6.7 g/dL (5.9-8.4); Sodium Level 140 mmol/L (133-145); Thyroid Stim Hormone (TSH) 0.104 uIU/mL (0.300-4.200); Total Bilirubin 0.43 mg/dL (0.00-1.30)
[2024-11-08 09:55] LABS: Cholesterol 198 mg/dL (<=200); High Density Lipoprotein 55 mg/dL; Low Density Lipoprotein Calc. 121 mg/dL; Triglycerides 108 mg/dL; Very Low Density Lipoprotein 22 mg/dL (5-40); cholesterol:hdl ratio screen 3.58
[2024-11-10 17:08] LABS: Anti-Thyroglobulin AB < 1.0 IU/mL (0.0-0.9); Thyroglobulin, Serum Qt. < 0.1 ng/mL (1.5-38.5)
== END | disposition home or self-care (01) ==
LOC: LAB 06:01
PROVIDERS: Internal Medicine Endocrinology, Diabetes & Metabolism; PCP Family Medicine; Referring Provider Family Medicine; Visit Provider Family Medicine
DX: I10 Essential (primary) hypertension (principal); E89.0 Postprocedural hypothyroidism; Z85.850 Personal history of malignant neoplasm of thyroid
CPT/HCPCS: 36415; 80053; 80061; 84432; 84439; 84443; 85025; 86800

== ENCOUNTER → 2025-05-09 | Outpatient (CLI) | payer BC, SELFPAY ==
[2025-05-09 07:51] LABS: Vitamin D,25 Hydroxy 75.6 ng/mL (30-100)
== END | disposition home or self-care (01) ==
LOC: LAB 05:53
PROVIDERS: PCP Family Medicine; Referring Provider Family Medicine; Visit Provider Family Medicine
DX: Z13.1 Encounter for screening for diabetes mellitus (principal); E03.9 Hypothyroidism, unspecified
CPT/HCPCS: 36415; 82306; 83036; 84439; 84443